=== PATIENT | female | born 1965 | race Caucasian/White ===

== ENCOUNTER → 2017-07-09 | Outpatient (CLI) | payer OTHER ==
[~2017-07-09] MED LIST: ALLDSR60 PO; BCPILLS PO; EXEDRIN MIGRAINE; OTC DECONGESTANT; OXYC-57 PO
== END | disposition home or self-care (01) ==
LOC: C.CPL 12:59
PROVIDERS: ATTEND Orthopaedic Surgery Sports Medicine
DX: M22.42 Chondromalacia patellae, left knee (principal)

== ENCOUNTER 2017-08-01 03:20 | Emergency (ER) | payer OTHER ==
[~2017-08-01] VITALS: Ht 172.7 cm; Wt 64.5 kg
[2017-08-01 03:24] VITALS: TEMP 36.3; Ht 172.7 cm; Wt 64.5 kg
[2017-08-01] MEDS ORDERED: ONDANSETRON INJ 2 MG/ML 2 ML VIAL IV STA (03:38)
[2017-08-01] MEDS ORDERED: KETOROLAC TROMETHAMINE 30 MG/ML VIAL IV STA (03:38)
[2017-08-01] MEDS ORDERED: SODIUM CHLORIDE 0.9% 1000ML 1,000 ML IV ONE (03:45)
[2017-08-01] MEDS ORDERED: MoRPHine SULFATE 4 MG/ML 1 ML CARP\\VIAL IV ONE ×2 (03:45→04:15)
[2017-08-01 04:08] LABS: BASO % 0.2 %; BASO ABS # 0.02 K/uL (0-0.2); COMPLETE YES; EOS % 2.7 %; HEMATOCRIT 39.2 % (37-47); IG% 0.2 %; LYMPH % 19.7 %; LYMPH ABS # 2.15 K/uL (1.2-3.4); MEAN CELL VOLUME 81.7 fL (80-100); MEAN CORPUSCULAR HEMOGLOBIN 29.4 pg (25-34); MEAN PLATELET VOLUME 9.7 fL (7.4-10.4); MONO % 9.6 %; NEUT % 67.6 %; PLATELET COUNT 246 K/uL (130-400); WHITE BLOOD COUNT 10.91 K/uL (4.8-10.8)
[2017-08-01 04:10] LABS: URINE APPEARANCE CLEAR (CLEAR); URINE BILIRUBIN NEG (NEG); URINE COLOR DK YELLOW; URINE NITRITE NEG (NEG); URINE PH 6.5 (4.5-7.5); UROBILINOGEN NEG (NEG); ZZUR CULT IF INDIC CLEAN CATCH NO
[2017-08-01 04:19] LABS: MANUAL MICROSCOPIC REQUIRED? NO; REVIEW REQ? NO
[2017-08-01] MEDS ORDERED: MELO15TA4 PO (04:22)
[2017-08-01] MEDS ORDERED: ALBU18002 INH (04:23)
[2017-08-01 04:24] LABS: BUN/CREATININE RATIO 25.4 (10-20); CALCIUM 9.6 mg/dl (8.5-10.1); CREATININE 0.94 mg/dl (0.60-1.20); POTASSIUM 3.2 mmol/L (3.5-5.1)
[2017-08-01] MEDS ORDERED: SERT50TA PO (04:26)
[2017-08-01] MEDS ORDERED: VERA1CAP5 PO (04:29)
[2017-08-01] MEDS ORDERED: LORA-741 PO (04:30)
[2017-08-01] MEDS ORDERED: VERA120T2 PO (04:35)
[2017-08-01 06:07] VITALS: BP 139/96; PULSE 65; O2SAT 98
[2017-08-01] MEDS ORDERED: ONDANSETRON HOME PACK 4MG OD TAB PO ONE (06:15)
[2017-08-01] MEDS ORDERED: OXYCODONE IR HOME PACK PO ONE (06:15)
[2017-08-01] MEDS ORDERED: ONDA4TAB10 SL (06:18)
[2017-08-01] MEDS ORDERED: TAMS0.4C38 PO (06:18)
[2017-08-01] MEDS ORDERED: OXYC1TAB3 PO (06:18)
--- NOTE | 2017-08-01 06:34 | DIAGNOSTIC IMAGING REPORT ---
ABD/PELVIS WITHOUT FOR STONE CT DOSE: 546.69 mGy.cm HISTORY: Flank and abdominal pain right flank pain to rlq pain TECHNIQUE: Multiaxial CT images of the abdomen and pelvis were performed without the use of intravenous and oral contrast according to the standard department stone protocol. A dose lowering technique was utilized adhering to the principles of ALARA. COMPARISON STUDY: None. FINDINGS: Lung bases are clear. 5 cm hypodense lesion posterior aspect right hepatic lobe. No associated calcifications. Liver otherwise appears uniform. Bilateral renal nonobstructing calcifications. Bilateral renal extrarenal pelves. Bowel pattern is nonobstructive throughout. 5 mm calculus right ureterovesical junction. Mild right hydroureteronephrosis. IMPRESSION: 1. 5 mm obstructing calculus right ureterovesical junction. 2. Mild right hydroureteronephrosis. 3. Nonobstructing renal calcifications bilaterally. 4. 5 cm hypodense nodule right hepatic lobe with either multiphase CT or MRI recommended as follow-up. The above report was generated using voice recognition software. It may contain grammatical, syntax or spelling errors. Electronically signed by: oRland Barnhart M.D. 08/01/2017 6:33 AM Dictated Date/Time: 08/01/2017 6:30 AM
--- NOTE | 2017-08-01 12:18 | Pharmacy Progress Note ---
ED Pharmacist Progress Note Date of Service: Aug 01, 2017. Pharmacist Dieudonne Rasmussen called from [facility] to state he has cancelled the Oxy IR Rx for Sary because Parag did not specify initial or ongoing therapy on the Rx. Parag is not currently working. Visit note printed for Dr Maciel to review.
--- NOTE | 2017-08-01 23:02 | EMERGENCY ROOM VISIT NOTE ---
History First contact with patient: 03:31 Chief Complaint: ABDOMINAL PAIN Stated Complaint: SEVERE ABD PAIN, LOWER RIGHT QUADRANT, RADIATING Nursing Triage Summary: c/o sudden onset RLQ beginning tonight prior to arrival along with nausea. History of Present Illness The patient is a 51 year old female who presents to the Emergency Room with complaints of right flank pain that began acutely about 3 hours ago. The patient states the pain radiates into right lower quadrant. She states the pain is a constant 7/10 with episodes that are a 9/10. She is nauseated with vomiting. She has urinary hesitancy. She does report a history of stones in the past. She has not taken anything [id number] for her symptoms. Review of Systems More than 10 systems were reviewed and otherwise negative with the exception of history of present illness. Past Medical/Surgical History No pertinent medical history Family History No pertinent family history Social History Smoking Status: Never Smoker Housing Status: lives with family Current/Historical Medications Scheduled Meloxicam (Meloxicam), 15 MG PO DAILY Ondasetron Odt (Zofran Odt), 4 MG SL Q6H Oxycodone Immediate Rel Tab (Roxicodone Ir), 1-2 TAB PO Q4H Sertraline (Zoloft), 50 MG PO DAILY Tamsulosin Hcl (Flomax), 0.4 MG PO DAILY Verapamil Sust Rel (Calan Sr Ext Rel), 120 MG PO HS Scheduled PRN Albuterol Sulfate (Proair Respiclick), 2 PUFFS INH Q4H PRN for SOB/Wheezing Lorazepam (Ativan), 0.5 MG PO TID PRN for Anxiety Physical Exam Vital Signs Date Time Temp Pulse Resp B/P (MAP) Pulse Ox O2 Delivery O2 Flow Rate FiO2 08/01/17 06:07 65 20 139/96 98 Room Air 08/01/17 04:14 53 18 164/97 100 Room Air 08/01/17 03:24 36.3 71 20 168/86 100 Room Air Physical Exam VITALS: Vitals are noted on the nurse's note and reviewed by myself. Vital signs stable. GENERAL: Well-developed, well-nourished, white female who appears in moderate to severe discomfort. HEART: Regular rate and rhythm without murmurs gallops or rubs. LUNGS: Clear to auscultation bilaterally without wheezes, rales or rhonchi. No retractions or accessory muscle use. ABDOMEN: Positive normal bowel sounds x 4. Soft, nontender, without masses or organomegaly. No guarding or rebound tenderness. MUSCULOSKELETAL: No muscle atrophy, erythema, or edema noted. Full range of motion without joint tenderness in all extremities. Medical Decision & Procedures ER Provider Diagnostic Interpretation: ABD/PELVIS WITHOUT FOR STONE CT DOSE: 546.69 mGy.cm HISTORY: Flank and abdominal pain right flank pain to rlq pain TECHNIQUE: Multiaxial CT images of the abdomen and pelvis were performed without the use of intravenous and oral contrast according to the standard department stone protocol. A dose lowering technique was utilized adhering to the principles of ALARA. COMPARISON STUDY: None. FINDINGS: Lung bases are clear. 5 cm hypodense lesion posterior aspect right hepatic lobe. No associated calcifications. Liver otherwise appears uniform. Bilateral renal nonobstructing calcifications. Bilateral renal extrarenal pelves. Bowel pattern is nonobstructive throughout. 5 mm calculus right ureterovesical junction. Mild right hydroureteronephrosis. IMPRESSION: 1. 5 mm obstructing calculus right ureterovesical junction. 2. Mild right hydroureteronephrosis. 3. Nonobstructing renal calcifications bilaterally. 4. 5 cm hypodense nodule right hepatic lobe with either multiphase CT or MRI recommended as follow-up. Laboratory Results 08/01/17 03:50 Red Blood Count 4.80, Mean Corpuscular Volume 81.7, Mean Corpuscular Hemoglobin 29.4, Mean Corpuscular Hemoglobin Concent 36.0, Mean Platelet Volume 9.7, Neutrophils (%) (Auto) 67.6, Lymphocytes (%) (Auto) 19.7, Monocytes (%) (Auto) 9.6, Eosinophils (%) (Auto) 2.7, Basophils (%) (Auto) 0.2, Neutrophils # (Auto) 7.38, Lymphocytes # (Auto) 2.15, Monocytes # (Auto) 1.05, Eosinophils # (Auto) 0.29, Basophils # (Auto) 0.02 08/01/17 03:50 Test 08/01/17 03:50 08/01/17 03:55 White Blood Count 10.91 K/uL (4.8-10.8) Red Blood Count 4.80 M/uL (4.2-5.4) Hemoglobin 14.1 g/dL (12.0-16.0) Hematocrit 39.2 % (37-47) Mean Corpuscular Volume 81.7 fL (80-100) Mean Corpuscular Hemoglobin 29.4 pg (25-34) Mean Corpuscular Hemoglobin Concent 36.0 g/dl (32-36) Platelet Count 246 K/uL (130-400) Mean Platelet Volume 9.7 fL (7.4-10.4) Neutrophils (%) (Auto) 67.6 % Lymphocytes (%) (Auto) 19.7 % Monocytes (%) (Auto) 9.6 % Eosinophils (%) (Auto) 2.7 % Basophils (%) (Auto) 0.2 % Neutrophils # (Auto) 7.38 K/uL (1.4-6.5) Lymphocytes # (Auto) 2.15 K/uL (1.2-3.4) Monocytes # (Auto) 1.05 K/uL (0.11-0.59) Eosinophils # (Auto) 0.29 K/uL (0-0.5) Basophils # (Auto) 0.02 K/uL (0-0.2) RDW Standard Deviation 39.0 fL (36.4-46.3) RDW Coefficient of Variation 13.0 % (11.5-14.5) Immature Granulocyte % (Auto) 0.2 % Immature Granulocyte # (Auto) 0.02 K/uL (0.00-0.02) Anion Gap 10.0 mmol/L (3-11) Est Creatinine Clear Calc Drug Dose 72.2 ml/min Estimated GFR () 82.0 Estimated GFR (Non- 70.7 BUN/Creatinine Ratio 25.4 (10-20) Calcium Level 9.6 mg/dl (8.5-10.1) Total Bilirubin 0.6 mg/dl (0.2-1) Aspartate Amino Transf (AST/SGOT) 21 U/L (15-37) Alanine Aminotransferase (ALT/SGPT) 24 U/L (12-78) Alkaline Phosphatase 108 U/L (45-117) Total Protein 7.7 gm/dl (6.4-8.2) Albumin 3.8 gm/dl (3.4-5.0) Globulin 3.9 gm/dl (2.5-4.0) Albumin/Globulin Ratio 1.0 (0.9-2) Lipase 197 U/L (73-393) Urine Color DK YELLOW Urine Appearance CLEAR (CLEAR) Urine pH 6.5 (4.5-7.5) Urine Specific [place] 1.020 (1.000-1.030) Urine Protein NEG (NEG) Urine Glucose (UA) NEG (NEG) Urine Ketones NEG (NEG) Urine Occult Blood 1+ (NEG) Urine Nitrite NEG (NEG) Urine Bilirubin NEG (NEG) Urine Urobilinogen NEG (NEG) Urine Leukocyte Esterase NEG (NEG) Urine WBC (Auto) 1-5 /hpf (0-5) Urine RBC (Auto) 10-30 /hpf (0-4) Urine Hyaline Casts (Auto) 0 /lpf (0-5) Urine Epithelial Cells (Auto) 5-10 /lpf (0-5) Urine Bacteria (Auto) NEG (NEG) Medications Administered Medications (Trade) Dose Ordered Sig/Adilson Route Start Time Stop Time Status Last Admin Dose Admin Morphine Sulfate (MoRPHine SULFATE INJ) 4 mg NOW ONCE IV 08/01/17 03:45 08/01/17 03:46 DC 08/01/17 03:54 4 MG Ketorolac Tromethamine (Toradol Inj) 30 mg NOW STAT IV 08/01/17 03:38 08/01/17 03:40 DC 08/01/17 03:55 30 MG Ondansetron HCl (Zofran Inj) 4 mg NOW STAT IV 08/01/17 03:38 08/01/17 03:40 DC 08/01/17 03:54 4 MG Sodium Chloride 1,000 ml @ 999 mls/hr Q1H1M ONCE IV 08/01/17 03:45 08/01/17 04:45 DC 08/01/17 03:55 999 MLS/HR Morphine Sulfate (MoRPHine SULFATE INJ) 4 mg NOW ONCE IV 08/01/17 04:15 08/01/17 04:16 DC 08/01/17 04:14 4 MG Oxycodone HCl (Roxicodone Immediate Rel 5MG Home Pack) 1 homepack UD ONCE PO 08/01/17 06:15 08/01/17 06:16 DC 08/01/17 06:23 1 HOMEPACK Ondansetron HCl (ZOFRAN ODT 4MG Home Pack) 1 homepack UD ONCE PO 08/01/17 06:15 08/01/17 06:16 DC 08/01/17 06:24 [facility] Physical exam and history were performed. Nursing notes, EMR, and Medication List were personally reviewed. Patient appears to have right flank pain and appears very uncomfortable on presentation. IV access was established and labs were obtained. CT scan was performed. The patient was hydrated and medicated as above. Patient does not have a significantly elevated white blood cell count, gross anemia, bandemia, or significant electrolyte imbalance. His transaminases are nondiagnostic. CT scan does reveal a 5 mm distal UVJ stone, which does correlate with her symptoms. Overall the patient felt much better after medication and hydration here in the department. She feels comfortable for discharge home, and will be given a course of OxyIR, Zofran, and Flomax. She was given a urine strainer and instructions to follow with urology. She was certainly by the ER with any new, worsening, or concerning symptoms. The chart was completed utilizing [employer] Speech Voice Recognition Software. Grammatical errors, random word insertions, pronoun errors, and incomplete sentences are an occasional consequence of this system due to software limitations, ambient noise, and hardware issues. Any formal questions or concerns about the content, text, or information contained within the body of this dictation should be directly addressed to the provider for clarification. . Medical Decision Differential diagnosis: Etiologies such as renal colic, appendicitis, diverticulitis, mesenteric ischemia, aortic pathology, infections, inflammatory bowel disease, PUD, biliary pathology, UTI, as well as others were entertained. Impression Primary Impression: Right ureteral calculus Departure Information Dispostion Home / Self-Care Condition GOOD Prescriptions Tamsulosin Hcl (FLOMAX) 0.4 Mg Cap 0.4 MG PO DAILY for 7 Days, #7 CAP Prov: Parag Nieto PA-C 08/01/17 Ondasetron Odt (ZOFRAN ODT) 4 Mg Tab 4 MG SL Q6H for Nausea, #12 TAB Prov: Parag Nieto PA-C 08/01/17 Oxycodone Immediate Rel Tab (ROXICODONE IR) 5 Mg Tab 1-2 TAB PO Q4H for Pain, #24 TAB Prov: Parag Nieto PA-C 08/01/17 Referrals Elsie Jackson MD Forms Call Back Authorization, HOME CARE DOCUMENTATION FORM, Work Instructions, Additional Instructions: Patient was seen and evaluated today in the emergency department fo medical care. Return to work on 08/06/2017. Please excuse. IMPORTANT VISIT INFORMATION Patient Instructions My [facility] Additional Instructions You were seen and evaluated today on an emergency basis only. This is not a substitute for, or an effort to provide, complete comprehensive medical care. It is not possible to recognize and treat all injuries or illnesses in a single emergency department visit. For this reason it is recommended that you followup with Urology, Dr. Jackson, for ongoing care and evaluation. Call the office today to schedule a follow-up appointment. Let them know you were seen in the ER. For baseline pain relief you may alternate ibuprofen and acetaminophen every 4 hours for pain control. Take 600 mg ibuprofen (Advil) and then 4 hours later take 1000 mg acetaminophen (Tylenol). Do not take more than 3000 mg acetaminophen in a single day. Oxycodone (OxyIR) 5mg: Take ONE or TWO pills every SIX hours for breakthrough pain. Avoid alcohol, operating machinery or dangerous equipment, working on ladders or roofs, DRIVING, or situations where being under the influence may be dangerous. It is recommended to use an [id number] stool softener such as Colace, 100mg twice daily while taking this medication to avoid constipation. Zofran 4 mg ODT: Dissolve 1 tablet every 6 hrs as needed for nausea. Strain your urine for the stone. If you are able to isolate it, please take it with you to see Urology. You are welcome to return to the emergency department anytime with new, worsening, or concerning symptoms. Work Instructions Additional Work Instructions: Patient was seen and evaluated today in the emergency department for medical care. Return to work on 08/06/2017. Please excuse.
== END 2017-08-01 06:27 | disposition home or self-care (01) ==
LOC: C.EDB 03:22 → C.EDA 06:27
DX: N20.1 Calculus of ureter (principal); Z87.442 Personal history of urinary calculi; Z79.899 Other long term (current) drug therapy

== ENCOUNTER → 2017-12-25 | Outpatient (CLI) | payer OTHER ==
[~2017-12-25] MED LIST changes: +ALBU18002 INH; -ALLDSR60 PO; -BCPILLS PO; -EXEDRIN MIGRAINE; +LORA-741 PO; +MELO-83 PO; +ONDA4TAB10 SL; -OTC DECONGESTANT; -OXYC-57 PO; +OXYC1TAB3 PO; +SERT50TA PO; +VERA120T2 PO
== END | disposition home or self-care (01) ==
LOC: C.PAPS 16:43
PROVIDERS: ATTEND Obstetrics & Gynecology
DX: Z12.4 Encounter for screening for malignant neoplasm of cervix (principal)